=== PATIENT | male | born 1935 | race Caucasian/White ===

== ENCOUNTER 2018-05-08 20:23 | Observation (INO) ==
--- NOTE | 2018-05-08 22:27 | Urology - Consult Note ---
Date of Encounter: 05/08/18 Time of Encounter: 22:25 - Assessment and Plan (1) Gross hematuria Current Visit: Yes Status: Acute Assessment and plan: Patient has had this gross hematuria for 1 week. I removed the patient's 12-[facility] catheter. I then prepped and draped in normal sterile fashion. A 24-Armenian hematuria catheter was then placed with some resistance around the patient's prostate. Immediate return of some clots and bloody urine was obtained. 20 mL's of saline placed in the balloon. I then proceeded to manually irrigate the patient's catheter with a moderate amount of clots returned from the patient's bladder. Patient was then connected to continuous bladder irrigation. We will plan on keeping the patient on continuous bladder irrigation overnight. Please hold all blood thinning medications at this time unless critical for life. (2) Urinary retention Current Visit: Yes Status: Acute Assessment and plan: Patient with chronic indwelling urethral catheter. Unsure of reason. We will need to obtain outside urological records but not urgent at this time. (3) Chronic renal insufficiency Current Visit: Yes Status: Acute Assessment and plan: Awaiting lab results. May need to get nephrology on board. Qualifiers: Chronic kidney disease stage: unspecified stage Qualified Code(s): N18.9 - Chronic kidney disease, unspecified Urology CN:HPI Consult date: 05/08/18 Reason for consult Urology: Gross Hematuria Requesting physician: Lavon Meadows History of present illness: Zachariah is a 82-year-old male new to the system. Patient was transferred from outside hospital secondary to gross hematuria. Patient had a 12-Armenian catheter which is unable to be irrigated. Patient is a very poor historian. I was able to gather that the patient has a nonfunctioning left kidney. Patient states that he was on dialysis for approximate 1 year but is no longer on dialysis. Patient also states that he has had a catheter off and on for many years. Patient is unsure why he has a 12-Armenian catheter. Patient states the hematuria started 1 week ago. Patient is unsure if he or his contacted the patient's urologist. Past Med Surg Social Fam HX - Past Medical History Medical history: hypertension, renal disease - Past Surgical History Additional surgical history: Patient denies any urological surgery - Family History Father History Unknown: Yes (Patient denies any urological past medical history in father) Review of Systems ROS unobtainable: due to mental status Exam General/Neuological: alert and oriented x 3 Eyes: normal pupils, non-icteric Neck: no lymphadenopathy noted, supple to touch Cardiovascular: RRR, no murmurs Respiratory: normal respiratory effort, clear bilaterally ABD: soft, nontender, no masses palpated, good bowel sounds Back: no pain on percussion bilaterally : normal phallus uncircumcised with blood around catheter, normal scrotum, testicles and epididymides normal, urethral meatus normal. Skin: no rashes noted Musculoskeletal: normal gait, FROMx4 Urology Results - Labs All other labs normal.
[2018-05-08] MEDS ORDERED: Naloxone 0.4 MG/ML INJ IVP PRN (22:44)
[2018-05-08] MEDS ORDERED: 0.9 % Sodium Chloride 1,000 ML IVC SCH (22:45)
[2018-05-08 23:06] LABS: Basophils % 0.2 %; Eosinophils # 0.2 K/mcL (0.0-0.6); Hematocrit 33.2 % (37.5-50.1); Hemoglobin 11.4 g/dL (12.9-16.9); Immature Granulocytes % 0.9 % (0-4); Lymphocytes # 0.9 K/mcL (0.6-4.6); Lymphocytes % 10.2 %; Mean Corpuscular HGB Conc 34.3 g/dL (31.6-35.5); Mean Corpuscular Hemoglobin 30.4 pg (28.0-33.3); Mean Corpuscular Volume 88.5 fL (83.0-100.0); Mean Platelet Volume 10.4 fL (9.4-12.4); Monocytes # 1.5 K/mcL (0.0-1.3); Monocytes % 16.5 %; Neutrophils # 6.5 K/mcL (1.6-8.9); Platelet Count 148 K/mcL (140-400); Red Blood Count 3.75 M/mcL (4.19-5.50); Red Cell Distribution Width 12.6 % (11.5-14.5); Segmented Neutrophils % 70.2 %
[2018-05-08 23:27] LABS: Albumin 3.8 g/dL (3.5-5.7); Albumin/Globulin Ratio 1.7 (1.1-2.2); Bilirubin,Total 0.5 mg/dL (0.3-1.0); Calcium 8.9 mg/dL (8.6-10.3); Globulin 2.3 g/dL (2.4-3.5); Phosphorous 4.4 mg/dL (2.7-4.5); Potassium 3.5 mEq/L (3.5-5.1); Total Protein 6.1 g/dL (6.4-8.9)
--- NOTE | 2018-05-09 00:10 | Internal Med History&Physical ---
Date of Encounter: 05/09/18 Time of Encounter: 00:10 Internal Medicine - H&P: HPI Chief complaint: Blood in his urinary catheter History of present illness: Mr. Stein is a 82 year old male with a past medical history of atrial fibrillation on anticoagulation, hypertension, CVA, [place], CKG stage IV who presented initially to [facility] with a chief complaint of having found blood in his Valdes catheter. Patient states that earlier today he sat down on the toilet to have a bowel movement when he noted blood in his catheter. On further questioning patient states that this is been going on for the past several days and has gotten progressively worse. Patient denies any pain per se. Further denies any traction or dislodgment of his catheter. Patient is currently on P lavix and Coumadin. INR found to be within therapeutic range at 2.49. Hemoglobin found to be 12.2. Patient denies any dysuria, fever, chills or abdominal pain. Patient reports that he has one good functioning kidney and is followed by a trust accounts supervisor by the name of Dr. Decker. He reports being on dialysis years ago but is not currently. He however is adamant about not going on full-time dialysis ever again even if it kills him. He is to have a appointment later this month with his urologist in [place]. Case was discussed with Dr. Pacheco who saw the patient shortly after arrival to [place]. Valdes was replaced and patient was started on continuous bladder irrigation. Past Med Surg Social Fam HX - Past Medical History Medical history: atrial fibrillation, CVA, hypertension, myocardial infarction, renal disease - Past Surgical History Surgical History: angioplasty/stent Additional surgical history: Patient denies any urological surgery - Social History Smoking Status: Former smoker - Family History Father History Unknown: Yes (Patient denies any urological past medical history in father) Internal Medicine - H&P: Meds ALPRAZolam 0.5 - 1 mg PO DAILY PRN 05/09/18 [History] Amlodipine Besylate 5 mg PO DAILY 05/09/18 [History] Clopidogrel Bisulfate 75 mg PO DAILY 05/09/18 [History] Warfarin [Coumadin] 5 mg PO 05/09/18 [History] Allergy/AdvReac Type Severity Reaction Status Date / Time No Known Allergies Allergy Verified 05/09/18 01:02 All Systems PM: A 10-system review of systems was performed and is negative for pertinent findings except as documented above in the HPI. - Constitutional Constitutional: no chills, no fever(s), no night sweats - EENT Eyes: no change in vision, no discharge, no pain, no photophobia Ears: no ear discharge, no ear pain, no tinnitus Nose, mouth and throat: no dysphagia, no nasal discharge, no neck pain, no sore throat - Cardiovascular Cardiovascular ROS IM: no chest pain, no diaphoresis, no dyspnea, no lightheadedness, no palpitations, no syncope - Respiratory Respiratory: no cough, no dyspnea, no wheezing, no excessive phlegm production - Gastrointestinal Gastrointestinal: no abdominal pain, no diarrhea, no hematemesis, no hematochezia, no melena, no nausea, no vomiting - Musculoskeletal Musculoskeletal ROS IM: no numbness, no tingling - Integumentary Integumentary IM: no rash, no unusual bruising - Neurological Neurological ROS: no confusion, no convulsions, no focal weakness, no numbness, no tingling, no tremor(s) - Hematologic/Lymphatic Hematologic/Lymphatic: no easy bruising - Constitutional Vitals: Temp Pulse Resp BP Pulse Ox 97.9 F 76 16 137/86 99 05/08/18 23:29 05/08/18 23:29 05/08/18 23:29 05/08/18 23:29 05/08/18 23:29 Exam: General: Alert and oriented x 3 Skin:Normal color, no rash, no lesions. HEENT:EOM, pupils equal, round and reactive. Cardiovascular:Normal S1 & S2, no rubs, murmurs or gallops. No JVD. Pulse regular. Lungs:Normal breath sounds, no wheezes or crackles. Abdomen/ :Soft, non-tender, no rigidity. no suprapubic tenderness. Extremities:No deformity, no edema or tenderness, no joint swelling or clubbing. Neurological:Normal cognition and motor skills. Pulses:Carotid and radial pulses normal +2. Rest of the physical exam is non contributory Internal Med - H&P Results - Labs CBC & Chem 7: 05/08/18 22:58 05/08/18 22:58 Labs: Short CBC 05/08/18 Range/Units 22:58 WBC 9.2 (4.3-11.1) K/mcL Hgb 11.4 L (12.9-16.9) g/dL Hct 33.2 L (37.5-50.1) % Plt Count 148 (140-400) K/mcL Neutrophils # 6.5 (1.6-8.9) K/mcL BMP 05/08/18 22:58 Sodium 137 Potassium 3.5 Chloride 106 Carbon Dioxide 16 L BUN 50 H Creatinine 4.04 H Glucose 113 H Calcium 8.9 Liver Function 05/08/18 Range/Units 22:58 Total Bilirubin 0.5 (0.3-1.0) mg/dL AST 12 L (13-39) Units/L ALT 11 (7-52) Units/L Alkaline Phosphatase 65 (34-104) Units/L Albumin 3.8 (3.5-5.7) g/dL - Assessment and plan (1) Gross hematuria Current Visit: Yes Status: Acute Assessment and plan: Gross hematuria found in Valdes in the setting of AC on Plavix and warfarin. We will obtain a UA to assess for any infectious etiology. Patient otherwise does not have a fever or white count or clinical symptoms of UTI. Patient seen by urology and Valdes catheter has been replaced and is currently on continuous bladder irrigation. Hemoglobin remaines stable. -Follow up UA -Trend hemoglobin and consider discontinuing anticoagulation if hematuria persists or hemoglobin continues to trend down. -Appreciate urology recommendations (2) Urinary retention Current Visit: Yes Status: Acute Assessment and plan: Patient appears to have a chronic indwelling Valdes in the setting of BPH. He has an appointment with his urologist at some point in the near future. (3) Atrial fibrillation Current Visit: Yes Status: Acute Assessment and plan: Continue with rate control and anticoagulation for now. Qualifiers: Atrial fibrillation type: unspecified Qualified Code(s): I48.91 - Unspecified atrial fibrillation (4) Chronic kidney disease, stage IV (severe) Current Visit: Yes Status: Acute Assessment and plan: History of stage IV chronic kidney disease. Current creatinine and GFR consistent with stage V. Patient reports being previously on dialysis years ago is no longer on dialysis currently. Based on patient's report, he has outpatient follow-up with a trust accounts supervisor. Given his current hematuria and what appears to be worsening chronic kidney disease, we will obtain nephrology consult for help with further management. (5) Hypertension Current Visit: Yes Status: Acute Assessment and plan: Blood pressure stable. Resume home antihypertensives. Qualifiers: Hypertension type: unspecified Qualified Code(s): I10 - Essential (primary) hypertension (6) Coronary artery disease Current Visit: Yes Status: Acute Assessment and plan: No reports of Chest Pain -continue with medical management Qualifiers: Associated angina: without angina Qualified Code(s): I25.10 - Atherosclerotic heart disease of [place] coronary artery without angina pectoris (7) DVT prophylaxis Current Visit: Yes Status: Acute Assessment and plan: on anticoagulation - Time Spent With Patient Total time spent is greater than 50% in coordination of care (as documented) at patient's floor/unit and/or counseling patient:
[2018-05-09 05:04] LABS: INR 2.6; Prothrombin Time 28.9 Seconds (9.4-12.1)
--- NOTE | 2018-05-09 06:59 | Urology Progress Note ---
Date of Encounter: 05/09/18 Time of Encounter: 06:57 - Assessment and Plan (1) Gross hematuria Current Visit: Yes Status: Acute Assessment and plan: still present. will hold plavix and coumadin today. will get ct scan. (2) Urinary retention Current Visit: Yes Status: Acute (3) Chronic renal insufficiency Current Visit: Yes Status: Acute Assessment and plan: markedly elevaed serum creatinine. may need to get nephrology on board even though it seems patient is adament about not going back on dialysis. Qualifiers: Chronic kidney disease stage: unspecified stage Qualified Code(s): N18.9 - Chronic kidney disease, unspecified Progress Note Narrative: patient seen this am. still with some hematuria in catheter tubing. no urinary complaints from patient. Objective Initial Vital Signs Temp Pulse Resp BP Pulse Ox 97.9 F 76 16 137/86 99 05/08/18 23:29 05/08/18 23:29 05/08/18 23:29 05/08/18 23:29 05/08/18 23:29 - General physical appearance Present: well developed, well nourished - Abdomen Present: soft. Absent: tender - Genitourinary Urine Appearance: Present: Hematuria - Labs 05/08/18 22:58 05/08/18 22:58 Diabetes panel 05/08/18 Range/Units 22:58 Sodium 137 (136-145) mEq/L Potassium 3.5 (3.5-5.1) mEq/L Chloride 106 (98-107) mEq/L Carbon Dioxide 16 L (23-29) mEq/L BUN 50 H (8-23) mg/dL Creatinine 4.04 H (0.70-1.30) mg/dL Glucose 113 H (70-105) mg/dL Calcium 8.9 (8.6-10.3) mg/dL AST 12 L (13-39) Units/L ALT 11 (7-52) Units/L Alkaline Phosphatase 65 (34-104) Units/L Albumin 3.8 (3.5-5.7) g/dL Calcium panel 05/08/18 Range/Units 22:58 Calcium 8.9 (8.6-10.3) mg/dL Phosphorus 4.4 (2.7-4.5) mg/dL Albumin 3.8 (3.5-5.7) g/dL Pituitary panel 05/08/18 Range/Units 22:58 Sodium 137 (136-145) mEq/L Potassium 3.5 (3.5-5.1) mEq/L Chloride 106 (98-107) mEq/L Carbon Dioxide 16 L (23-29) mEq/L BUN 50 H (8-23) mg/dL Creatinine 4.04 H (0.70-1.30) mg/dL Glucose 113 H (70-105) mg/dL Calcium 8.9 (8.6-10.3) mg/dL Adrenal panel 05/08/18 Range/Units 22:58 Sodium 137 (136-145) mEq/L Potassium 3.5 (3.5-5.1) mEq/L Chloride 106 (98-107) mEq/L Carbon Dioxide 16 L (23-29) mEq/L BUN 50 H (8-23) mg/dL Creatinine 4.04 H (0.70-1.30) mg/dL Glucose 113 H (70-105) mg/dL Calcium 8.9 (8.6-10.3) mg/dL Total Bilirubin 0.5 (0.3-1.0) mg/dL AST 12 L (13-39) Units/L ALT 11 (7-52) Units/L Alkaline Phosphatase 65 (34-104) Units/L Albumin 3.8 (3.5-5.7) g/dL
[2018-05-09] MEDS: amLODIPine 5 MG TABLET PO SCH (08:55)
--- NOTE | 2018-05-09 10:36 | Urology Procedure Note ---
Date of Encounter: 05/09/18 Time of Encounter: 10:10 Procedures:Urology - Bladder Irrigation/Clot Evacuation Consent obtained: verbal consent Time out performed: No Irrigation: other (1L of sterile water ) Patient tolerated procedure: well, no complications Continuous Bladder Irrigation: Yes Complications: none Additional comments: Reviewed CT images with Dr. Pacheco revealing residual clot in bladder. Hand irrigated large amount of clot from the urinary bladder. Patient tolerated well with minimal pain. CBI resumed.
--- NOTE | 2018-05-09 11:03 | Nephrology Consult Note ---
<Emely Vivar Melissa - Last Filed: 05/09/18 14:15> Date of Encounter: 05/09/18 Assessment and Plan (1) Chronic kidney disease, stage IV (severe) Current Visit: Yes Status: Acute Request sent for old records If truly stage 4 then patient is close to baseline Will proceed with the following: UA, urine culture, urine sodium, urine creatinine, urine eosinophils, CPK, renal ultrasound, serum uric acid, protein/creatinine ratio. Avoid nephrotoxins if possible At this time patient has no interest in doing hemodialysis. (2) Gross hematuria Current Visit: Yes Status: Acute (3) Atrial fibrillation Current Visit: Yes Status: Acute Qualifiers: Atrial fibrillation type: unspecified Qualified Code(s): I48.91 - Unspecified atrial fibrillation Medications and Allergies Atorvastatin [Lipitor] 40 mg PO DAILY 05/10/18 [History] RX: ALPRAZolam [Xanax 0.5 MG Tablet] 0.5 mg PO BID PRN 05/10/18 [History] RX: Amoxicillin [Amoxil] 500 mg PO Q12H 05/10/18 [History] RX: Clopidogrel [Plavix] 75 mg PO SUMOTUWETHSA 05/10/18 [History] Warfarin Sodium 5 mg PO SUMOTUWETHSA 05/10/18 [History] amLODIPine [Norvasc] 5 mg PO DAILY 05/10/18 [History] Allergy/AdvReac Type Severity Reaction Status Date / Time No Known Allergies Allergy Verified 05/09/18 01:02 Exam - Vital Signs Vital signs: Initial Vital Signs Temp Pulse Resp BP Pulse Ox 97.9 F 76 16 137/86 99 05/08/18 23:29 05/08/18 23:29 05/08/18 23:29 05/08/18 23:29 05/08/18 23:29 Vital Signs - Last 8 Hours Temp Pulse Resp BP Pulse Ox 05/09/18 09:39 97.8 F 62 15 143/74 99 05/09/18 07:10 97.6 F 77 16 151/51 95 Intake and Output 05/08/18 05/09/18 05/09/18 23:59 07:59 15:59 Intake Total 1640 / 1640 Output Total 3450 / 3450 1450 / 1450 Balance -3450 / -3450 190 / 190 Intake: IV Fluids 600 / 600 0.9 % Sodium Chloride 1,000 ML 600 / 600 @ 75 mls/hr IVC .[id number] [facility] Rx #:[id number] Oral 1040 / 1040 Output: Urine 3450 / 3450 1450 / 1450 Other: Intake, CBI Fluid 3,000 3,000 Meal Breakfast Percent of Meal Consumed 75% Output, CBI Fluid 3,050 3,000 Weight 72.5 kg 72.5 kg Patient Weight 05/09/18 23:59 Weight 72.5 kg Results - Lab Results 05/08/18 22:58 05/08/18 22:58 Most recent lab results Calcium 8.9 mg/dL (8.6-10.3) 05/08/18 22:58 Phosphorus 4.4 mg/dL (2.7-4.5) 05/08/18 22:58 Magnesium 2.0 mg/dL (1.6-2.6) 05/08/18 22:58 Consult Discharge Plan - Plan Referrals: Yadiel Figueroa MD [Primary Care Provider] - <Jatin Cuba - Last Filed: 05/10/18 14:19> Date of Encounter: 05/09/18 Time of Encounter: 10:56 Assessment and Plan (1) Chronic kidney disease, stage IV (severe) Current Visit: Yes Status: Acute (2) Gross hematuria Current Visit: Yes Status: Acute per urology team (3) Atrial fibrillation Current Visit: Yes Status: Acute per primary team Qualifiers: Atrial fibrillation type: unspecified Qualified Code(s): I48.91 - Unspecified atrial fibrillation History of Present Illness - Reason for Consult Consult date: 05/09/18 - Chief Complaint hematuria, CKD - History of Present Illness Mr. Stein is a 82 year old male with a past medical history of atrial fibrillation on anticoagulation, hypertension, CVA, CT, CKG stage IV who was admitted for hematuria in his quintana cath. called while I was seeing patient and was able to give me a much better history than patient. states patient has a history of two strokes and sometimes gets a little confused. Patient has one kidney, states his other kidney "just dried up". Has seen Dr Mead several times but now wishes to transfer to our group. Patient was admit tracy at [facility] a week ago for the same problem-blood in the urine and this is where he had the quintana cath placed per . states he was on dialysis at least six years ago for around two years but then recovered enough kidney function to come off dialysis. Patient states he does not ever want to go back on dialysis. Only have labs from this admission but it appears patient is a CKD stage 4 per history. Past Med Surg Social Fam HX - Past Medical History Medical history: atrial fibrillation, CVA, hypertension, myocardial infarction, renal disease Psychiatric history: no psych history - Past Surgical History Surgical History: angioplasty/stent Additional surgical history: Patient denies any urological surgery - Social History Smoking Status: Former smoker Smokeless Tobacco Status: No Alcohol use: none Drug use: none - Family History Father History Unknown: Yes (Patient denies any urological past medical history in father) Review of Systems All Systems: reviewed and no additional remarkable complaints except as stated Constitutional: no fever(s) Cardiovascular: no chest pain, no leg edema Gastrointestinal: no nausea, no vomiting Genitourinary Male: hematuria Neurological: confusion Psychiatric: confusion Exam - Vital Signs Vital signs: Initial Vital Signs Temp Pulse Resp BP Pulse Ox 97.9 F 76 16 137/86 99 05/08/18 23:29 05/08/18 23:29 05/08/18 23:29 05/08/18 23:29 05/08/18 23:29 Vital Signs - Last 8 Hours Temp Pulse Resp BP Pulse Ox 05/09/18 09:39 97.8 F 62 15 143/74 99 05/09/18 07:10 97.6 F 77 16 151/51 95 05/09/18 03:35 97.9 F 83 16 155/75 100 Intake and Output 05/08/18 05/09/18 05/09/18 23:59 07:59 15:59 Intake Total 1040 / 1040 Output Total 3450 / 3450 500 / 500 Balance -3450 / -3450 540 / 540 Intake: Oral 1040 / 1040 Output: Urine 3450 / 3450 500 / 500 Other: Intake, CBI Fluid 3,000 3,000 Meal Breakfast Percent of Meal Consumed 75% Output, CBI Fluid 3,050 3,000 Weight 72.5 kg 72.5 kg Patient Weight 05/09/18 23:59 Weight 72.5 kg - General Appearance General appearance: well-developed, well-nourished EENT: ATNC, mucous membranes moist, vision intact Neck: supple Respiratory: clear Cardiology: no edema, normal S1, normal S2 Gastrointestinal: no tenderness, no guarding Integumentary: warm and dry Neurologic: confused (at times) Psychiatric: mood/affect appropriate, cooperative Results - Lab Results 05/10/18 08:34 05/10/18 08:34 Most recent lab results Calcium 8.9 mg/dL (8.6-10.3) 05/08/18 22:58 Phosphorus 4.4 mg/dL (2.7-4.5) 05/08/18 22:58 Magnesium 2.0 mg/dL (1.6-2.6) 05/08/18 22:58 - Attending Attestation I examined this patient and my medical decision-making was reviewed with the Resident Physician/LEATHERSMITH. I agree with the documented findings, disposition and treatment plan as described except to the extent set forth below. Pt seen and examined and in brief; 82 y o male with PMH of Afib on coumadin, HTN, CAD s/p CT, CVA and stage 4 CKD previously on HD admitted with gross h ematuria. Pt is a poor historian but reports prior history of being on dialysis with Dr Mead and is no longer interested in ever being back on dialysis. On exam; elderly male NAD, lungs clear, heart with S1S2 and no LE edema. Will obtain records from [facility] of baseline renal fxn. For now, will treat as CLAUDIA on CKD till baseline proven. Will order labs as already noted including US of kidney, urine studies etc though with CBI at present. Urology following.
[2018-05-09 12:36] LABS: Uric Acid 7.4 mg/dL (2.3-7.6)
[2018-05-09] MEDS: ALPRAZolam 0.5 MG TABLET PO PRN (20:44)
--- NOTE | 2018-05-10 07:26 | Urology Progress Note ---
Date of Encounter: 05/10/18 Time of Encounter: 07:23 - Assessment and Plan (1) Gross hematuria Current Visit: Yes Status: Acute Assessment and plan: Appears resolved at this time. Okay to reintroduce blood thinning medications i f clinically needed. Please call with any questions. (2) Urinary retention Current Visit: Yes Status: Acute Assessment and plan: Patient will keep catheter in place. Patient is adamant that he wants to follow with Dr. Vincent on May 20. Patient will need to keep his catheter in place until that time. (3) Chronic renal insufficiency Current Visit: Yes Status: Acute Assessment and plan: Nephrology on board. Patient does not desire dialysis. Qualifiers: Chronic kidney disease stage: unspecified stage Qualified Code(s): N18.9 - Chronic kidney disease, unspecified Progress Note Narrative: Patient seen this morning. Patient's urine has cleared off irrigation overnight. Objective Initial Vital Signs Temp Pulse Resp BP Pulse Ox 97.9 F 76 16 137/86 99 05/08/18 23:29 05/08/18 23:29 05/08/18 23:29 05/08/18 23:29 05/08/18 23:29 - General physical appearance Present: well developed, well nourished - Abdomen Present: soft. Absent: tender - Genitourinary Present: other Urine Appearance: Present: Clear - Labs 05/08/18 22:58 05/08/18 22:58 Consult Discharge Plan - Plan Referrals: Yadiel Figueroa MD [Primary Care Provider] -
[2018-05-10] MEDS: amLODIPine 5 MG TABLET PO SCH (08:12)
[2018-05-10 09:11] LABS: Basophils % 0.1 %; Eosinophils # 0.2 K/mcL (0.0-0.6); Eosinophils % 3.1 %; Hematocrit 33.9 % (37.5-50.1); Hemoglobin 11.3 g/dL (12.9-16.9); Immature Granulocytes % 0.7 % (0-4); Lymphocytes # 1.5 K/mcL (0.6-4.6); Mean Corpuscular HGB Conc 33.3 g/dL (31.6-35.5); Mean Corpuscular Hemoglobin 29.7 pg (28.0-33.3); Mean Corpuscular Volume 89.2 fL (83.0-100.0); Mean Platelet Volume 10.2 fL (9.4-12.4); Monocytes # 1.1 K/mcL (0.0-1.3); Monocytes % 15.1 %; Neutrophils # 4.3 K/mcL (1.6-8.9); Platelet Count 156 K/mcL (140-400); Red Cell Distribution Width 12.8 % (11.5-14.5)
[2018-05-10 09:16] LABS: Albumin 3.8 g/dL (3.5-5.7); Calcium 8.9 mg/dL (8.6-10.3); Phosphorous 3.9 mg/dL (2.7-4.5); Potassium 3.5 mEq/L (3.5-5.1)
[2018-05-10 10:50] LABS: Bilirubin,Urine Negative (Negative); Blood,Urine Large (Negative); Clarity,Urine Clear (Clear); Color,Urine Yellow (Yellow); Glucose,Urine (UA) Normal (Normal); Ketones,Urine Negative (Negative); Leukocyte Esterase,Urine Moderate (Negative); Nitrite,Urine Negative (Negative); Protein,Urine 100 mg/dL (Neg-Trace); Specific Gravity,Urine 1.007 (1.010-1.025); Urobilinogen,Urine Normal (Normal)
[2018-05-10 10:51] LABS: Bacteria,Urine None Seen per hpf (None-Few); Hyaline Casts,Urine None Seen per lpf (None-Few); RBC,Urine 50-100 per hpf (0-3); Squamous Epithelial Cell,Urine Many per lpf (None-Few)
[2018-05-10 11:23] LABS: Protein/Creatinine Ratio,Urine 23.7 mg/mg (0.00-0.20); Sodium, Urine 73.3 mEq/L
--- NOTE | 2018-05-10 12:16 | Nephrology Progress Note ---
Addendum entered and electronically signed by Rebel Fontenot DO 05/10/18 17:45: I have personally performed a face to face evaluation on this patient. I have reviewed and agree with the care plan. History and Exam by me shows: He has advanced CKD at the bottom of stage IV to stage V (he was in stage V today). He has voiced repetitively and confidently that he would never want dialysis again. I recommend following a renal protective and conservative strategy as able. I reviewed the handoff communication from my colleague Dr. Martinez, for whom he m ay see for outpatient Nephrology follow up. I read in her note that he voiced interest in changing to see her instead of his prior rn mobile. I also discussed this pt's care with the hospitalist. Thank you. Original Note: Date of Encounter: 05/10/18 Time of Encounter: 12:14 - Assessment and Plan (1) Gross hematuria Current Visit: Yes Status: Acute per urology team (2) Atrial fibrillation Current Visit: Yes Status: Acute per primary team Qualifiers: Atrial fibrillation type: unspecified Qualified Code(s): I48.91 - Unspecified atrial fibrillation (3) Chronic kidney disease, stage IV (severe) Current Visit: Yes Status: Acute Request sent for old records. If patient is CKD IV, GFR 14 today, close to baseline. Urine NA 73 not likely pre-renal and affirms CKD. Avoid nephrotoxins if possible Patient does not desire HD. Retroperitneal US: 1. Persistent [id number] right hydronephrosis and hydroureter. No left hydronephrosis. 2. Lobulated kidneys with increased echogenicity and parenchymal thinning in keeping with chronic medical renal disease. 3. Prostatic hypertrophy. Subjective Principal diagnosis: hematuria Interval history: Pt seen and examined, feeling okay. Denies nausea, vomiting, diarrhea. Denies CP or shortness of breath. Objective - Vital Signs Vital signs: Vital Signs Temp Pulse Resp BP Pulse Ox 05/10/18 10:17 98.3 F 62 15 159/69 96 05/10/18 06:32 97.6 F 68 14 145/74 99 05/10/18 04:21 98.0 F 71 14 146/74 100 05/09/18 23:32 98.3 F 66 12 163/71 97 05/09/18 20:49 162/76 05/09/18 19:42 97.7 F 71 12 179/68 99 Intake and Output 05/09/18 05/10/18 05/10/18 23:59 07:59 15:59 Output Total 2975 / 2975 Balance -2975 / -2975 Output: Urine 2775 / 2775 Catheter 200 / 200 Other: Intake, CBI Fluid 3,000 Output, CBI Fluid 3,000 Weight 74.9 kg Patient Weight 05/10/18 23:59 Weight 74.9 kg - General Appearance General appearance: Present: well-developed, well-nourished EENT: Present: ATNC, hearing intact, vision intact Neck: Present: supple Respiratory: Present: clear Cardiology: Present: no edema, normal S1, normal S2 Gastrointestinal: Present: normoactive bowel sounds, no tenderness, no guarding Integumentary: Present: no rash, warm and dry Neurologic: Present: alert and oriented x3 Musculoskeletal: Present: no deformities, no erythema Psychiatric: Present: mood/affect appropriate, cooperative - Lab 05/10/18 08:34 05/10/18 08:34 Most recent lab results Calcium 8.9 mg/dL (8.6-10.3) 05/10/18 08:34 Phosphorus 3.9 mg/dL (2.7-4.5) 05/10/18 08:34 Magnesium 2.0 mg/dL (1.6-2.6) 05/08/18 22:58 Urine Creatinine 43 mg/dL 05/10/18 10:22 Urine Sodium 73.3 mEq/L 05/10/18 10:22 Urine Total Protein 1019 mg/dL (1-14) H 05/10/18 10:22 Consult Discharge Plan - Plan Referrals: Yadiel Figueroa MD [Primary Care Provider] -
[2018-05-10 13:21] LABS: Prothrombin Time 23.1 Seconds (9.4-12.1)
--- NOTE | 2018-05-10 16:41 | Discharge Summary ---
- NOTES TO OUTPATIENT PROVIDER Notes to Outpatient Provider: follow-up with urology as an outpatient for management of Valdes catheter Orders not resulted at time of discharge: Pending orders 05/11/18 04:00 PT/INR [Prothrombin Time INR] [COAG] AM 0400 05/12/18 04:00 PT/INR [Prothrombin Time INR] [COAG] AM 0400 05/13/18 04:00 PT/INR [Prothrombin Time INR] [COAG] AM 0400 05/14/18 04:00 PT/INR [Prothrombin Time INR] [COAG] AM 0400 05/15/18 04:00 PT/INR [Prothrombin Time INR] [COAG] AM 0400 Date of Encounter: 05/10/18 Time of Encounter: 11:00 - Discharge Diagnosis (1) Gross hematuria Priority: Primary Status: Acute (2) Urinary retention Priority: Primary Status: Acute (3) Atrial fibrillation Priority: Secondary Status: Acute Qualifiers: Atrial fibrillation type: unspecified Qualified Code(s): I48.91 - Unspecified atrial fibrillation (4) Chronic kidney disease, stage IV (severe) Priority: Secondary Status: Acute (5) Hypertension Priority: Secondary Status: Acute Qualifiers: Hypertension type: unspecified Qualified Code(s): I10 - Essential (primary) hypertension (6) Coronary artery disease Priority: Secondary Status: Acute Qualifiers: Associated angina: with unspecified angina Qualified Code(s): I25.119 - Atherosclerotic heart disease of [place] coronary artery with unspecified angina pectoris Hospital course: Patient is 82-year-old male past medical history significant for atrial fibrillation on anticoagulation, hypertension, CVA, AR, CKG stage IV who presented initially to [facility] with a chief complaint of having found blood in his Valdes catheter. Patient states that earlier today he sat down on the toilet to have a bowel movement when he noted blood in his catheter. On further questioning patient states that this is been going on for the past several days and has gotten progressively worse. Patient denies any pain per se. Further denies any traction or dislodgment of his catheter. Patient is currently on Plavix and Coumadin. INR found to be within therapeutic range at 2.49. Hemoglo bin found to be 12.2. Patient denies any dysuria, fever, chills or abdominal pain. Patient reports that he has one good functioning kidney and is followed by a grease rack worker by the name of Dr. Decker. He reports being on dialysis years ago but is not currently. He however is adamant about not going on full-time dialysis ever again even if it kills him. He is to have a appointment later this month with his urologist in [place]. Case was discussed with Dr. Pacheco who saw the patient shortly after arrival to [facility]. Valdes was replaced and patient was started on continuous bladder irrigation. During patients hospital stay his gross hematuria resolved with continuous bladder irrigation which was discontinued and patient restarted on oral anticoagulation will be discharged with Valdes catheter to follow-up with urology as an outpatient. - Time Spent with Patient Total time spent providing and/or coordinating discharge services: Less than 30 minutes - Discharge Medications Home Medications: ALPRAZolam [Xanax 0.5 MG Tablet] 0.5 mg PO BID PRN 05/10/18 [History] Amoxicillin [Amoxil] 500 mg PO Q12H 05/10/18 [History] Atorvastatin [Lipitor] 40 mg PO DAILY 05/10/18 [History] Clopidogrel [Plavix] 75 mg PO [facility] 05/10/18 [History] Warfarin Sodium 5 mg PO [facility] 05/10/18 [History] amLODIPine [Norvasc] 5 mg PO DAILY 05/10/18 [History] Allergies/Adverse Reactions: Allergy/AdvReac Type Severity Reaction Status Date / Time No Known Allergies Allergy Verified 05/09/18 01:02 Date of admission: 05/08/18 21:39 Primary care physician: Yadiel Figueroa MD Consults: 05/09/18 03:07 Consult to Urology [CONS] Routine Consulting Provider: Urology Janay Reason for Consult: hematuria Call Completed: No 05/09/18 03:08 Consult to Nephrology [CONS] Routine Consulting Provider: Kidney Janay/CICI/CRISTÓBAL/FAUSTINO Reason for Consult: CKD Call Completed: No 05/10/18 08:10 Consult to Nurse Navigator [CONS] Routine Comment: ESRD 05/10/18 12:48 Consult to Occupational Therapy [CONS] Stat Comment: Evaluate, develop and implement POC Reason for Consult: Weakness Does patient have active BEDREST order?: No Is patient medically & hemodynamically stable?: Yes Patient assessed for mobility or mobilized this visit?: Yes Consult to Physical Therapy [CONS] Stat Comment: Evaluate, develop and implement POC Reason for Consult: Weakness Does patient have active BEDREST order?: No Is patient medically & hemodynamically stable?: Yes Patient assessed for mobility or mobilized this visit?: Yes - Constitutional Vitals: Temp Pulse Resp BP Pulse Ox 98.0 F 88 14 163/97 94 05/10/18 14:38 05/10/18 14:38 05/10/18 14:38 05/10/18 14:38 05/10/18 14:38 Exam: Gen.: Nonacute distress, alert and oriented 3 Skin: Normal color - Patient Status Disposition: Home Health Service - Discharge Instructions Follow Up With: Yadiel Figueroa MD [Primary Care Provider] -
--- NOTE | 2018-05-10 16:44 | Physician Discharge Referral ---
Home Health/Hosp Referral Info Transfer to: Home Health - Diagnosis (1) Gross hematuria Status: Acute (2) Urinary retention Status: Acute (3) Atrial fibrillation Status: Acute (4) Chronic kidney disease, stage IV (severe) Status: Acute (5) Hypertension Status: Acute (6) Coronary artery disease Status: Acute (7) DVT prophylaxis Status: Acute - Respiratory Orders Smoking Cessation: Smoking cessation has been advised. For more information, call the [place] Tobacco Quit Line at 4-191-EFFQ-NOW. - Transfer Medications Home Medications: ALPRAZolam [Xanax 0.5 MG Tablet] 0.5 mg PO BID PRN 05/10/18 [History] Amoxicillin [Amoxil] 500 mg PO Q12H 05/10/18 [History] Atorvastatin [Lipitor] 40 mg PO DAILY 05/10/18 [History] Clopidogrel [Plavix] 75 mg PO SUMOTUWETHSA 05/10/18 [History] Warfarin Sodium 5 mg PO SUMOTUWETHSA 05/10/18 [History] amLODIPine [Norvasc] 5 mg PO DAILY 05/10/18 [History] Allergies/Adverse Reactions: Allergy/AdvReac Type Severity Reaction Status Date / Time No Known Allergies Allergy Verified 05/09/18 01:02 Certification: Further, I certify that my clinical findings support that this patient is homebound (i.e. absences from home require considerable and taxing effort and are for medical reasons or hoahaoism services or infrequently or short duration when for other reasons) because: Homebound Reason: Patient requires assistance of a person or device to safely leave home Attestation: My signature below is to certify that this patient is under my care and that I, or nurse practitioner, or a physician's assistant professor of theater working with me, has a [id number] encounter with this patient.
[2018-05-10] MEDS: ALPRAZolam 0.5 MG TABLET PO PRN (16:50)
[2018-05-10] MEDS ORDERED: *HR* Warfarin 5 MG TABLET PO SCH (18:00)
[2018-05-11 03:48] LABS: INR 2.1; Prothrombin Time 23.7 Seconds (9.4-12.1)
[2018-05-11] MEDS: amLODIPine 5 MG TABLET PO SCH (08:43)
[2018-05-11 10:07] VITALS: BP 115/60
--- NOTE | 2018-05-11 10:20 | Event Note ---
Date of Encounter: 05/11/18 Time of Encounter: 10:18 - Nephrology Event Note Last renal function labs were from a few days ago, but in this pt with a solitary kidney and given his strongly voiced desire to never have dialysis again, I will sign-off. Recommend in general to follow a renal protective/conservative strategy (renal dosing of any renally-cleared Rx, avoid Nephrotoxins as able). Please feel free to call or page me with any Renal questions. See comments in my note from yesterday regarding outpt Nephrology follow up. Thank you.
== END 2018-05-11 14:14 | disposition home health service (06) ==
LOC: 3ANU → SUATTDRO 21:39
PROVIDERS: ADMIT Internal Medicine; ATTEND Hospitalist